=== PATIENT | female | born 1980 | race Caucasian/White ===

== ENCOUNTER 2019-09-08 09:28 | Emergency (ER) | payer OTHER, BC ==
[~2019-09-08] VITALS: Ht 144.8 cm; Wt 78.5 kg
[2019-09-08 09:28] VITALS: BP_SYST 144
--- NOTE | 2019-09-08 09:28 | NUR ---
BROUGHT BACK TO BED #8 AND TRIAGED. REPORT GIVEN TO TICO
--- NOTE | 2019-09-08 09:35 | NUR ---
Pt presents to ED c/o R ear pain x 4 days.
--- NOTE | 2019-09-08 09:40 | NUR ---
ER at bedside examining patient.
[2019-09-08 09:50] VITALS: BP_SYST 144
--- NOTE | 2019-09-08 09:50 | NUR ---
Patient given written and verbal discharge instructions and verbalizes understanding. ER MD discussed with patient the results and treatment provided. Patient in stable condition. ID arm band removed. Rx of naprosyn,augmentin given. Patient educated on pain management and to follow up with PMD. Pain Scale 7. Pt to take medication at home for pain [employer] for questions provided and answered. Medication side effect fact sheet provided.
== END 2019-09-08 09:50 | disposition home or self-care (01) ==
LOC: SED 09:28 → EEVIPCON 09:28 → SED 09:50
DX: H66.91 Otitis media, unspecified, right ear (principal); Z88.2 Allergy status to sulfonamides; R03.0 Elevated blood-pressure reading, without diagnosis of hypertension
CPT/HCPCS: 99283

== ENCOUNTER 2019-11-30 08:32 | Outpatient (CLI) | payer OTHER, BC ==
[2019-11-30 09:24] LABS: BASOPHILS % (AUTO) 0.7 % (0.0-2.0); EOSINOPHILS # (AUTO) 0.1 K/uL (0.0-0.4); EOSINOPHILS % (AUTO) 1.8 % (0.0-4.0); HEMATOCRIT 40.5 % (36-48); HEMOGLOBIN 13.3 g/dL (12.0-16.0); LYMPHOCYTES # (AUTO) 1.8 K/uL (1.0-5.5); LYMPHOCYTES % (AUTO) 32.4 % (20.5-51.5); MEAN CORPUSCULAR HEMOGLOBIN 29 pg (27-31); MEAN CORPUSCULAR HGB CONC 33 % (32-36); MEAN CORPUSCULAR VOLUME 87 fL (79.0-98.0); MONOCYTES # (AUTO) 0.4 K/uL (0.0-1.0); MONOCYTES % (AUTO) 6.5 % (1.7-9.3); NEUTROPHILS # (AUTO) 3.2 K/uL (1.8-7.7); NEUTROPHILS % (AUTO) 58.6 % (40.0-70.0); PLATELET COUNT (AUTO) 345 K/uL (130-430); RED BLOOD CELL COUNT(AUTO) 4.64 MIL/uL (4.2-6.2); RED CELL DISTRIBUTION WIDTH 13.4 % (9.0-15.0); WHITE BLOOD COUNT (AUTO) 5.5 K/uL (4.8-10.8)
[2019-11-30 09:44] LABS: ALBUMIN 3.6 g/dL (3.4-4.8); CALCIUM 8.8 mg/dL (8.4-11.0); CREATININE 0.78 mg/dL (0.55-1.30); POTASSIUM 4.1 mmol/L (3.5-5.1); TOTAL BILIRUBIN 0.4 mg/dL (0.0-1.0)
[2019-11-30 09:51] LABS: THYROID STIMULATING HORMONE 1.05 uIu/mL (0.36-3.74)
== END 2019-11-30 20:49 | disposition home or self-care (01) ==
LOC: SLB 08:32
PROVIDERS: ATTEND Internal Medicine
DX: E03.9 Hypothyroidism, unspecified (principal)
CPT/HCPCS: 36415; 80053; 80061; 84443-TC; 85025

== ENCOUNTER 2020-07-22 08:32 | Outpatient (CLI) | payer OTHER, BC ==
[2020-07-22 10:32] LABS: BASOPHILS # (AUTO) 0.1 K/uL (0.0-0.2); EOSINOPHILS # (AUTO) 0.1 K/uL (0.0-0.4); HEMATOCRIT 39.1 % (36-48); HEMOGLOBIN 13.1 g/dL (12.0-16.0); LYMPHOCYTES # (AUTO) 1.7 K/uL (1.0-5.5); LYMPHOCYTES % (AUTO) 27.6 % (20.5-51.5); MEAN CORPUSCULAR HEMOGLOBIN 30 pg (27-31); MEAN CORPUSCULAR HGB CONC 34 % (32-36); MEAN CORPUSCULAR VOLUME 88 fL (79.0-98.0); MONOCYTES # (AUTO) 0.4 K/uL (0.0-1.0); NEUTROPHILS % (AUTO) 64.4 % (40.0-70.0); PLATELET COUNT (AUTO) 292 K/uL (130-430); RED BLOOD CELL COUNT(AUTO) 4.42 MIL/uL (4.2-6.2); RED CELL DISTRIBUTION WIDTH 13.4 % (9.0-15.0); WHITE BLOOD COUNT (AUTO) 6.3 K/uL (4.8-10.8)
[2020-07-22 10:37] LABS: ALBUMIN 3.7 g/dL (3.4-4.8); CREATININE 0.85 mg/dL (0.55-1.30); POTASSIUM 4.1 mmol/L (3.5-5.1); TOTAL BILIRUBIN 0.5 mg/dL (0.0-1.0)
== END 2020-07-22 19:24 | disposition home or self-care (01) ==
LOC: SUS 08:32
PROVIDERS: ATTEND Internal Medicine
DX: E78.5 Hyperlipidemia, unspecified (principal); R10.11 Right upper quadrant pain; N92.0 Excessive and frequent menstruation with regular cycle
CPT/HCPCS: 36415; 76700-TC; 80053; 80061; 83690-TC; 85025

== ENCOUNTER 2020-08-04 19:26 | Inpatient (IN) | payer OTHER, BC ==
[~2020-08-04] VITALS: Ht 144.8 cm; Wt 85.7 kg
[2020-08-04 19:28] VITALS: BP_SYST 152
[2020-08-04] MEDS ORDERED: DIPHENHYDRAMINE INJ 50 MG/ML VIAL IVP ONE (20:00)
[2020-08-04] MEDS ORDERED: methylPREDNISolone SOD SUCC/PF 62.5 MG/ML VIAL IVP ONE ×2 (20:00→20:45)
[2020-08-04] MEDS ORDERED: EPINEPHrine 1 MG/ML AMP IM ONE (20:00)
[2020-08-04] MEDS ORDERED: FAMOTIDINE PF 20 MG/2 ML VIAL IVP ONE (20:00)
[2020-08-04] MEDS ORDERED: LIP10 PO (21:15)
[2020-08-04] MEDS ORDERED: LISI10TA5 PO (21:15)
[2020-08-04] MEDS ORDERED: KCL 10 mEq in D5/0.45NS 1000mL 1,000 ML IV SCH (21:15)
[2020-08-04] MEDS ORDERED: hydrALAZINE HCL 25 MG TABLET PO PRN (22:30)
[2020-08-04] MEDS ORDERED: ACETAMINOPHEN 325 MG TABLET PO PRN ×2 (22:30→22:45)
[2020-08-04 22:50] VITALS: BP_SYST 101
[2020-08-05] MEDS ORDERED: KCL 10 mEq in D5/0.45NS 1000mL 1,000 ML IV ONE (01:12)
[2020-08-05] MEDS: methylPREDNISolone SOD SUCC 40 MG/ML VIAL IVP SCH ×2 (06:16→13:46)
[2020-08-05 07:37] LABS: BASOPHILS % (AUTO) 0.1 % (0.0-2.0); HEMATOCRIT 38.4 % (36-48); HEMOGLOBIN 12.8 g/dL (12.0-16.0); LYMPHOCYTES # (AUTO) 0.6 K/uL (1.0-5.5); LYMPHOCYTES % (AUTO) 6.7 % (20.5-51.5); MEAN CORPUSCULAR HEMOGLOBIN 29 pg (27-31); MEAN CORPUSCULAR HGB CONC 33 % (32-36); MEAN CORPUSCULAR VOLUME 88 fL (79.0-98.0); MONOCYTES # (AUTO) 0.1 K/uL (0.0-1.0); NEUTROPHILS # (AUTO) 8.7 K/uL (1.8-7.7); NEUTROPHILS % (AUTO) 92.2 % (40.0-70.0); PLATELET COUNT (AUTO) 302 K/uL (130-430); RED BLOOD CELL COUNT(AUTO) 4.36 MIL/uL (4.2-6.2); RED CELL DISTRIBUTION WIDTH 13.2 % (9.0-15.0); WHITE BLOOD COUNT (AUTO) 9.4 K/uL (4.8-10.8)
[2020-08-05 08:00] VITALS: BP_SYST 118
[2020-08-05 08:02] LABS: ALBUMIN 3.4 g/dL (3.4-4.8); CALCIUM 8.2 mg/dL (8.4-11.0); CREATININE 0.67 mg/dL (0.55-1.30); POTASSIUM 4.2 mmol/L (3.5-5.1); THYROID STIMULATING HORMONE 0.45 uIu/mL (0.36-3.74); TOTAL BILIRUBIN 0.4 mg/dL (0.0-1.0)
[2020-08-05] MEDS ORDERED: FAMOTIDINE 20 MG TABLET PO SCH (09:00)
[2020-08-05] MEDS ORDERED: ATORVASTATIN 10 MG TABLET PO SCH (09:00)
[2020-08-05] MEDS ORDERED: LISINOPRIL 10 MG TABLET (PRINIVIL) PO SCH (09:00)
[2020-08-05] MEDS: DIPHENHYDRAMINE HCL 12.5 MG/5 ML UDC PO SCH ×2 (09:38→15:47)
[2020-08-05 16:00] VITALS: BP_SYST 138
== END 2020-08-05 19:07 | disposition home or self-care (01) | DRG 916 ==
LOC: SED 19:26 → STU 21:30
PROVIDERS: ADMIT Internal Medicine; ATTEND Internal Medicine
DX: T78.3XXA Angioneurotic edema, initial encounter (principal); T78.49XA Other allergy, initial encounter; X58.XXXA Exposure to other specified factors, initial encounter; Y93.89 Activity, other specified; Y92.89 Other specified places as the place of occurrence of the external cause; Y99.8 Other external cause status
CPT/HCPCS: 36415; 80053; 84443-TC; 85025; 93005; 96372; 96374; 96375; 99285; G0378; J0171; J1030; J1200; J2930; J3490